=== PATIENT | female | born 1970 ===

== ENCOUNTER 2018-08-05 20:56 | Emergency (ER) | payer OTHER ==
[2018-08-05 21:11] VITALS: O2SAT 100
--- NOTE | 2018-08-06 00:03 | C.PDOC ---
History Of Present Illness Patient reports to the ED c/o headache that started today. Patient reports having previous headaches in the past, however states symptoms improved while in the ED. Patient denies fever, chills, visual changes, slurred speech, weakness, numbness, CP, SOB. Time Seen by Provider: 08/05/18 23:56 Chief Complaint (Nursing): Headache History Per: Patient History/Exam Limitations: no limitations Onset/Duration Of Symptoms: Days Current Symptoms Are (Timing): Better Quality: "Pain" Recent travel outside of the [place]: No Additional History Per: Patient Past Medical History Reviewed: Historical Data, Nursing Documentation, Vital Signs Vital Signs: Last Vital Signs Temp 98.1 F 08/05/18 21:07 Pulse 73 08/05/18 21:07 Resp 18 08/05/18 21:07 BP 104/65 08/05/18 21:07 Pulse Ox 100 08/05/18 21:07 - Medical History PMH: Anxiety, Depression, HTN Denies: Chronic Kidney Disease Surgical History: No Surg Hx Family History: States: Unknown Family Hx - Social History Hx Alcohol Use: No Hx Substance Use: No - Immunization History Hx Influenza Vaccination: Yes Review Of Systems Constitutional: Negative for: Fever, Chills Eyes: Negative for: Vision Change Cardiovascular: Negative for: Chest Pain Respiratory: Negative for: Shortness of Breath Gastrointestinal: Negative for: Nausea, Vomiting, Abdominal Pain Skin: Negative for: Rash Neurological: Positive for: Headache. Negative for: Weakness, Numbness, Dizziness Physical Exam - Physical Exam Appears: Non-toxic, No Acute Distress Skin: Warm, Dry Head: Normacephalic Eye(s): bilateral: Normal Inspection, PERRL, EOMI Oral Mucosa: Moist Neck: No Midline Cervical Tenderness, Supple Extremity: Bilateral: Atraumatic, Normal Color And Temperature, Normal ROM Neurological/Psych: Oriented x3, Normal Speech, Normal Cognition Gait: Steady ED Course And Treatment O2 Sat by Pulse Oximetry: 100 (ON RA) Pulse Ox Interpretation: Normal Progress Note: Plan: - Labs Disposition Counseled Patient/Family Regarding: Studies Performed, Diagnosis, Need For Followup - Disposition Referrals: Young López MD [Staff Provider] - Disposition: HOME/ ROUTINE Disposition Time: 00:01 Condition: FAIR Additional Instructions: Por favor devuelva si el simptosmo se repite Prescriptions: Naproxen [Naprosyn] 1 tab PO BID PRN #25 tab PRN Reason: Pain Ondansetron ODT [Zofran ODT] 1 odt PO BID PRN #6 odt PRN Reason: Nausea/Vomiting Instructions: Migraine Headache (DC) Forms: [employer] ([place]ian) Print Language: [place] - Clinical Impression Clinical Impression: Migraine - Scribe Statement The provider has reviewed the documentation as recorded by the Scribskyler Pandey All medical record entries made by the Oskaribskyler were at my direction and personally dictated by me. I have reviewed the chart and agree that the record accurately reflects my personal performance of the history, physical exam, medical decision making, and the department course for this patient. I have also personally directed, reviewed, and agree with the discharge instructions and disposition.
[2018-08-06 00:13] VITALS: BP 130/82; PULSE 72; RESP 16; TEMP 99
--- NOTE | 2018-08-06 16:41 | CARD ---
APPROVED REPORT Date of service: 08/05/2018 EKG Measurement Heart [id number] <Conclusion> Normal sinus rhythm Normal ECG
== END 2018-08-06 00:17 | disposition home or self-care (01) ==
LOC: C.ER 20:56
DX: G43.909 Migraine, unspecified, not intractable, without status migrainosus (principal); I10 Essential (primary) hypertension